=== PATIENT | female | born 1980 | race Caucasian/White ===

== ENCOUNTER 2024-03-12 19:06 | Emergency (ER) | payer OTHER, SELFPAY ==
--- NOTE | 2024-03-12 19:08 | ED.URI ---
HPI - URI/Sore Throat General Chief Complaint: Upper Respiratory Infection Stated Complaint: Sinus Infection Time Seen by Provider: 03/12/24 19:08 Source: patient Mode of arrival: ambulatory Limitations: no limitations History of Present Illness HPI Narrative: Kirsty is a 44-year-old female patient presenting to the clinic today with complaints of possible sinus infection. She reports she has had symptoms for over 1 week. Is blowing out some green nasal drainage has sinus pressure. No known fever or chills. States she gets a sinus infection every year. MD elicited complaint: nasal congestion and sinus pain Related Data Allergies Allergy/AdvReac Type Severity Reaction Status Date / Time doxycycline Allergy Mild Rash Verified 03/12/24 19:16 Review of Systems Review of Systems: Pertinent positives per HPI. Patient denies any fever, chills, rash, headache, visual changes, dizziness, cough, shortness of breath, chest pain, palpitations, nausea, vomiting, diarrhea, constipation, abdominal pain, or any urinary issues. [facility] Past Medical History Medical History Acute sinusitis Social History Social History Smoking status: Never smoker Alcohol intake: never Substance use: never Substance use type: does not use Lack of Transportation: No Lack of Food: Never True Current Housing: I Have Housing Concerned About Future Housing: No Difficulty Paying Gas/Electric Bills: No Difficulty Paying for Meds: No Currently Unemployed: No Difficulty w/ Childcare or Family Care: No Living arrangements: with family Occupation/Education: occupation Gender identity (if verbalized by the patient): Female Comments At the time of my signature, I reviewed and agree with the nursing past medical, surgical, social, and family history. There is no relevant family history pertinent to the patient complaint. Exam Narrative: General: Well-developed, well nourished, in no apparent distress Head: Normocephalic, atraumatic Eyes: Pupils equally round and reactive to light bilaterally, EOM intact, sclera and conjunctive clear, no discharge, lids normal Ears: TMs intact and clear, ear canals clear, no drainage, grossly hearing normal. Nose: Nares patent, green nasal discharge, moderate inflammation, maxillary sinus tenderness. Mouth: Oral pharynx without lesions or masses, good dentition, MMM. Postnasal drip Neck: Supple, trachea midline, no enlargement of anterior or posterior cervical nodes, no thyroid masses or goiter palpable. Cardio: Regular rate and rhythm, s1 and s2 normal, no murmur appreciated. Resp: Clear to auscultation bilaterally, no rhonchi, rales, wheezing or rubs Course Course Emergency Course: Portions of this record may have been created with voice recognition software. Level of Care: Express Care Visit Vital Signs Vital signs: Vital signs reviewed MDM - URI/Sore Throat MDM Narrative Medical decision making narrative: At the time of visit patient is resting comfortably on the exam table. Patient appears to be nontoxic. Plan: I suspect patient has acute bacterial rhinosinusitis. Prescription for Augmentin, prednisone, fluconazole was sent to the pharmacy as patient does get yeast infections while taking antibiotics. Supportive measures were discussed with the patient and they voiced understanding discharge instructions and agrees to treatment plan. Return precautions reviewed Differential Diagnosis Differential diagnosis: Likely upper respiratory infection, otitis media, sinusitis, viral infection, bronchitis, influenza, pharyngitis and other (COVID) Discharge Plan Discharge Clinical Impression: Acute bacterial rhinosinusitis Patient Disposition: Home, Self-Care Condition: Stable Instructions: Antibiotic Form, Rhinosinusitis (ED) Additional Instructions: Take prescription medications only as prescribed-prednisone, Augmentin, and fluconazole Increase fluids and stay well hydrated Tylenol/motrin for pain/fever Flonase and OTC antihistamines as directed Vicks vapor rub to open sinuses Sinus rinses for congestion Cepacol spray, cough drops, throat lozenges, warm tea with honey/lemon, gargle salt water to soothe throat BRAT diet for diarrhea Clear liquids x 24 hours then advance as tolerated for nausea/vomiting Go to the ED if you develop a worsening in your condition- high fever not controlled by Tylenol or Motrin, dehydration, weakness, lethargy, shortness of breath, or chest pain. Follow up with your PCP in 3-5 days if symptoms persist. Patient Language: Citizen Of [place] Prescriptions: New fluconazole 150 mg tablet 150 mg PO ONCE Qty: 2 0RF Rx Instructions: as a single dose. May repeat in 72 hours if needed. prednisone 20 mg tablet 40 mg PO DAILY 5 Days Qty: 10 0RF amoxicillin-pot clavulanate 875-125 mg tablet 1 tablet PO Q12H 10 Days Qty: 20 0RF No Action albuterol sulfate 90 mcg/actuation HFA aerosol inhaler 1 - 2 inh inhalation Q4-6H PRN (Reason: shortness of breath or wheezing) Qty: 8.5 0RF Follow-up/Referrals: UNKNOWN,DOCTOR [Primary Care Provider] - Time of Disposition: 19:22 Quality NIHSS Nursing Documentation ED NIHSS nursing documentation: reviewed/agree
[2024-03-12 19:14] VITALS: BP 126/81; PULSE 72; RESP 18; TEMP 36.2; O2SAT 100
== END 2024-03-12 19:26 | disposition home or self-care (01) ==
PROVIDERS: Emergency Provider Nurse Practitioner Family
DX: J01.90 Acute sinusitis, unspecified (principal); B96.89 Other specified bacterial agents as the cause of diseases classified elsewhere
CPT/HCPCS: 99213; G0463

== ENCOUNTER 2024-04-22 16:29 | Emergency (ER) | payer OTHER, SELFPAY ==
--- NOTE | 2024-04-22 16:30 | ED.URI ---
HPI - URI/Sore Throat General Chief Complaint: Upper Respiratory Infection Stated Complaint: sinus infection Time Seen by Provider: 04/22/24 16:30 Source: patient Mode of arrival: ambulatory Limitations: no limitations History of Present Illness HPI Narrative: Kirsty is a 44-year-old female patient presenting to the clinic today with complaints of possible sinus infection. She reports no fevers, chills, body aches. States she has sinus pressure and sinus congestion that started yesterday. MD elicited complaint: sore throat and nasal congestion Related Data Home Medications ?Medication ?Instructions ?Recorded ?Confirmed ?Last Taken ?Type No Home Medications 04/07/24 04/07/24 Unknown History Allergies Allergy/AdvReac Type Severity Reaction Status Date / Time doxycycline Allergy Mild Rash Verified 04/22/24 16:41 Review of Systems Review of Systems: Pertinent positives per HPI. Patient denies any fever, chills, rash, headache, visual changes, dizziness, shortness of breath, chest pain, palpitations, nausea, vomiting, diarrhea, constipation, abdominal pain, or any urinary issues. [facility] Past Medical History Medical History Acute sinusitis Social History Social History Social History: 04/07/24 Patient declined SDOH Smoking status: Never smoker Alcohol intake: never Substance use: never Substance use type: does not use Lack of Transportation: No Lack of Food: Never True Current Housing: I Have Housing Concerned About Future Housing: No Difficulty Paying Gas/Electric Bills: No Difficulty Paying for Meds: No Currently Unemployed: No Difficulty w/ Childcare or Family Care: No Living arrangements: with family Occupation/Education: occupation Gender identity (if verbalized by the patient): Female Comments At the time of my signature, I reviewed and agree with the nursing past medical, surgical, social, and family history. There is no relevant family history pertinent to the patient complaint. Exam Narrative: General: Well-developed, well nourished, in no apparent distress Head: Normocephalic, atraumatic Eyes: Pupils equally round and reactive to light bilaterally, EOM intact, sclera and conjunctive clear, no discharge, lids normal Ears: TMs intact and clear, ear canals clear, no drainage, grossly hearing normal. Nose: Nares patent, clear nasal discharge, mild inflammation, no sinus tenderness. Mouth: Oral pharynx without lesions or masses, good dentition, MMM. Neck: Supple, trachea midline, no enlargement of anterior or posterior cervical nodes, no thyroid masses or goiter palpable. Cardio: Regular rate and rhythm, s1 and s2 normal, no murmur appreciated. Resp: Clear to auscultation bilaterally, no rhonchi, rales, wheezing or rubs Course Course Emergency Course: Portions of this record may have been created with voice recognition software. Level of Care: Express Care Visit Vital Signs Vital signs: Vital Signs Temperature 37.1 C 04/22/24 16:38 Pulse Rate 105 H 04/22/24 16:38 Respiratory Rate 18 04/22/24 16:38 Blood Pressure 131/63 04/22/24 16:38 Pulse Oximetry 100 04/22/24 16:38 Oxygen Delivery Room Air 04/22/24 16:38 Temperature 37.1 C 04/22/24 16:38 Pulse Rate 105 H 04/22/24 16:38 Respiratory Rate 18 04/22/24 16:38 Blood Pressure 131/63 04/22/24 16:38 Pulse Oximetry 100 04/22/24 16:38 Oxygen Delivery Room Air 04/22/24 16:38 Vital signs reviewed MDM - URI/Sore Throat MDM Narrative Medical decision making narrative: At the time of visit patient is resting comfortably on the exam table. Patient appears to be nontoxic. Labs: COVID testing is positive in the clinic today. Influenza testing is negative. Plan: Patient has COVID-19. Supportive measures were discussed with the patient and they voiced understanding discharge instructions and agrees to treatment plan. Return precautions reviewed Differential Diagnosis Differential diagnosis: Likely upper respiratory infection, otitis media, sinusitis, viral infection, bronchitis, influenza, pharyngitis and other (COVID) Discharge Plan Discharge Clinical Impression: COVID-19 Patient Disposition: Home, Self-Care Condition: Stable Instructions: Antibiotic Form, How to Recover from COVID-19 at Home (ED) Additional Instructions: COVID test is positive in the clinic today. Influenza testing was negative in the clinic today. May take DayQuil/NyQuil for cold/flu symptoms May continue taking Sudafed as needed for nasal congestion Increase fluids and stay well hydrated Tylenol/motrin for pain/fever Flonase and OTC antihistamines as directed Vicks vapor rub to open sinuses Sinus rinses for congestion Cepacol spray, cough drops, throat lozenges, warm tea with honey/lemon, gargle salt water to soothe throat BRAT diet for diarrhea Clear liquids x 24 hours then advance as tolerated for nausea/vomiting Go to the ED if you develop a worsening in your condition- high fever not controlled by Tylenol or Motrin, dehydration, weakness, lethargy, shortness of breath, or chest pain. Follow up with your PCP in 3-5 days if symptoms persist. Patient Language: Azeri Prescriptions: No Action No Home Medications Follow-up/Referrals: UNKNOWN,DOCTOR [Non-Staff] - Stand Alone Forms: Work/School Release IP Time of Disposition: 16:45 Quality NIHSS Nursing Documentation ED NIHSS nursing documentation: reviewed/agree
--- OUTSIDE RECORDS SUMMARY | 2024-04-22 16:31 | XMS_ITS | Clinical Summary ---
Author Organization [facility] Address [address] [place] [address] Care Team Providers Care Vulcan Crewmember Name Role Phone Olga Lidia Hernandez Primary Care Provider [phone] Allergies No known active allergies Medications fexofenadine (DARRIN) 180 mg tablet Take 1 tablet (180 mg total) by mouth daily Active Active Problems No known active problems Surgical History Surgery Date Site/Laterality Comments SECTION x 2 WISDOM TOOTH EXTRACTION Medical History Medical History Date Comments Ear problems Family History Medical History Relation Name Comments No Known Problems Father No Known Problems Mother Relation Name Status Comments Father Mother Social History Tobacco Use Types Packs/Day Years Used Date Smoking Tobacco: Never Smokeless Tobacco: Never Tobacco Cessation:Counseling Given: Not Answered Personal Safety Answer Date Recorded Getting School Help Needed Not on file 05/23 Comments Unknown Sex and Gender Information Value Date Recorded Sex Assigned at Not on file 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 Gender Identity Not on file Sexual Orientation Not on file Obstetrics History Last Filed Vital Signs Vital Sign Reading Time Taken Comments Blood Pressure - - Pulse - - Temperature 36.2 C (97.1 F) 08/20/2023 8:58 AM CDT Respiratory Rate - - Oxygen Saturation - - Inhaled Oxygen Concentration - - Weight 87.5 kg (193 lb) 08/20/2023 8:58 AM CDT Height 154.9 cm (5' 1 ) 08/20/2023 8:58 AM CDT Body Mass Index 36.47 08/20/2023 8:58 AM CDT Plan of Treatment Health Maintenance Due Date Last Done Comments Breast Cancer Screening-Mammogram 1979 Cervical Cancer Screening 1979 Colon Cancer Screening-Colonoscopy 1979 Depression Screening 1979 Hepatitis C Screening 1979 DTaP/Tdap/Td Vaccine (1 - Tdap) 1990 Hepatitis B Screening 1997 Regular Well Visit/Exam 18-64 1997 Covid-19 Vaccine (3 - 2023-2 5 season) 2023 12/25/2020, 11/29/2020 Influenza Vaccine (#1) 2023 HPV Vaccines Aged Out No longer eligi ble based on patient's age to complete this topic Pneumococcal vaccine <65 Aged Out No longer eligible based on patient's age to complete this topic Insurance [facility] HMO/PPO Address: [facility] [address] [place] [address] [facility] HMO/PP[facility] Address: [address] [address] [place] [address] Care Teams Vulcan Crewmember Relationship Specialty Start Date End Date Olga Lidia Hernandez PA [address] [place] [id number] PCP - General Family Practice 08/05/23
--- OUTSIDE RECORDS SUMMARY | 2024-04-22 16:31 | XMS_ITS | Referral Summary ---
Author Organization [facility] Address [address] [place] [address] Care Team Providers Care Clothing Cutter Name Role Phone Olga Lidia Hernandez Primary Care Provider [phone] Allergies No known active allergies Medications fexofenadine (DARRIN) 180 mg tablet Take 1 tablet (180 mg total) by mouth daily Active Active Problems No known active problems Social History Tobacco Use Types Packs/Day Years Used Date Smoking Tobacco: Never Smokeless Tobacco: Never Tobacco Cessation:Counseling Given: Not Answered Personal Safety Answer Date Recorded Getting School Help Needed Not on file 05/23 Comments Unknown Sex and Gender Information Value Date Recorded Sex Assigned at Not on file 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
--- OUTSIDE RECORDS SUMMARY | 2024-04-22 16:31 | XMS_ITS | Clinical Summary ---
Author Organization [facility] Address [address] [place] [address] Care Team Providers Care Hoof Trimmer Name Role Phone Unavailable Primary Care Provider Unavailabl e Social History Tobacco Use Types Packs/Day Years Used Date Smoking Tobacco: Never Assessed Comments Unknown Sex and Gender Information Value Date Recorded Sex Assigned at Not on file Legal Sex Female 4:58 PM CDT Gender Identity Not on file Sexual Orientation Not on file Last Filed Vital Signs Vital Sign Reading Time Taken Comments Blood Pressure 112/78 12/23/2016 2:36 PM CDT Pulse 79 12/23/2016 2:36 PM CDT Temperature - - Respiratory Rate - - Oxygen Saturation - - Inhaled Oxygen Concentration - - Weight 80.7 kg (178 lb) 12/23/2016 2:36 PM CDT Height 165.1 cm (5' 5 ) 12/23/2016 2:36 PM CDT Body Mass Index 29.62 12/23/2016 2:36 PM CDT Plan of Treatment Health Maintenance Due Date Last Done Comments Cervical Cancer Screening Pa p Smear (Age 30 to 64) Every 3 Years 1979 Colorectal Cancer Screening Colonoscopy (10 Years) 1979 Annual Physical 1982 Hepatitis C 1997 DTaP, Tdap and Td Vaccines ( 1 - Tdap) 1998 Hepatitis B Vaccines (1 of 3 - 19+ 3-dose series) 1998 Cervical Cancer Screening Pa p with HPV Testing (Age 30 to 64) Every 5 Years 2009 Cervical Cancer Screening with HPV 2009 Mammogram Screening 2019 COVID-19 Vaccine ( - 2023-2 5 season) 2023 Influenza Adult (#1) 2023 HPV Vaccines Aged Out No longer eligi ble based on patient's age to complete this topic Meningococcal B Vaccine Aged Out No l onger eligible based on patient's age to complete this topic Meningococcal Vaccine Aged Out No arianna patricio eligible based on patient's age to complete this topic Pneumococcal Vaccine: Pediat rics (0 to 5 Years) and At-Risk Patients (6 to 64 Years) Aged Out No longer eligible b ased on patient's age to complete this topic RSV Immunizations Under 20 Months Aged Out No longer eligible based on patient's age to complete this topic
[2024-04-22 16:38] VITALS: BP 131/63; PULSE 105; RESP 18; TEMP 37.1; O2SAT 100
[2024-04-22 17:03] LABS: EDCOVIDSCREEN Positive (Negative)
[2024-04-22 17:03] LABS: EDINFLUASCREEN Negative (Negative); EDINFLUBSCREEN Negative (Negative)
== END 2024-04-22 17:00 | disposition home or self-care (01) ==
PROVIDERS: Emergency Provider Nurse Practitioner Family
DX: U07.1 COVID-19 (principal)
CPT/HCPCS: 87426; 87804; 99212; G0463

== ENCOUNTER 2024-08-06 17:45 | Emergency (ER) | payer OTHER, SELFPAY ==
--- NOTE | ~2024-08-06 | CT_ITS ---
CT brain wo con Ordering provider: Shaina Hunt PA-C History: 44 years Female with . [place], hit in head by baseball . Comparison: None. Technique: CT of the head without contrast. Radiation reduction technique utilized. The dose-length p roduct was 605.33 mGy-cm. FINDINGS: BRAIN PARENCHYMA AND CSF SPACES: No midline shift, mass effect or hemorrhage. The brain parenchyma a nd CSF spaces are otherwise normal. VISUALIZED PARANASAL SINUSES: Well aerated. MASTOIDS: Well aerated. BONES: The bones appear intact. SOFT TISSUES: Visualized nasopharynx is normal. Small soft tissue density seen in the frontal scalp most likely small hematoma. Otherwise, Superficial soft tissues are normal. IMPRESSION: No acute intracranial findings. Reviewed, dictated and finalized at location A.
[2024-08-06 17:46] VITALS: BP 145/85; PULSE 84; RESP 20; TEMP 36.7; O2SAT 100
--- OUTSIDE RECORDS SUMMARY | 2024-08-06 17:47 | XMS_ITS | Referral Summary ---
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 Gender Identity Not on file Sexual Orientation Not on file Last Filed Vital Signs Vital Sign Reading Time Taken Comments Blood Pressure - - Pulse - - Temperature 36.2 C (97.1 F) 08/20/2023 8:58 AM CDT Respiratory Rate - - Oxygen Saturation - - Inhaled Oxygen Concentration - - Weight 87.5 kg (193 lb) 08/20/2023 8:58 AM CDT Height 154.9 cm (5' 1) 08/20/2023 8:58 AM CDT Body Mass Index 36.47 08/20/2023 8:58 AM CDT Plan of Treatment Not on file Insurance [facility] CHOICE PLUS [place] [id number] CHOICE PLUS Care Teams Ultrasound Tester Relationship Specialty Start Date End Date Olga Lidia Hernandez PA [address] [place] [address] [phone] PCP - General Family Practice 08/05/23
--- OUTSIDE RECORDS SUMMARY | 2024-08-06 17:47 | XMS_ITS | Clinical Summary ---
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
--- OUTSIDE RECORDS SUMMARY | 2024-08-06 18:43 | XMS_ITS | Referral Summary ---
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
--- OUTSIDE RECORDS SUMMARY | 2024-08-06 18:43 | XMS_ITS | Clinical Summary ---
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
--- NOTE | 2024-08-06 19:05 | ED_ITS ---
HPI - Head Injury General Chief complaint: Head Injury Stated complaint: HIT BY BASEBALL Time Seen by Provider: 08/06/24 17:59 Source: patient Mode of arrival: ambulatory Limitations: no limitations History of Present Illness HPI Narrative: Patient is a 44 y/o female who presents to the ED with c/o head injury. Patient reports she was playing catch with her son when the baseball hit with patient in her forehead. She sustained some swelling to the area. Complains of mild headache. Denies LOC. Denies dizziness, lightheadedness, vision changes, nausea, vomiting, neck pain, back pain, any other injuries. Related Data Home Medications ?Medication ?Instructions ?Recorded ?Confirmed ?Last Taken ?Type minoxidil 2.5 mg tablet 2.5 mg PO DAILY 05/12/24 05/12/24 Unknown History spironolactone 25 mg tablet 25 mg PO DAILY 05/12/24 05/12/24 Unknown History Allergies Allergy/AdvReac Type Severity Reaction Status Date / Time doxycycline Allergy Mild Rash Verified 05/12/24 14:46 Review of Systems Review of Systems: All systems reviewed & are unremarkable except as noted in HPI. All systems reviewed & are unremarkable except as noted in HPI and below PMFSH Past Medical History Medical History Acute sinusitis Social History Social History Social History: 04/07/24 Patient declined SDOH Smoking status: Never smoker Alcohol intake: never Substance use: never Substance use type: does not use Lack of Transportation: No Lack of Food: Never True Current Housing: I Have Housing Concerned About Future Housing: No Difficulty Paying Gas/Electric Bills: No Difficulty Paying for Meds: No Currently Unemployed: No Difficulty w/ Childcare or Family Care: No Living arrangements: with family Occupation/Education: occupation Gender identity (if verbalized by the patient): Female Exam Narrative: GENERAL: Well appearing, well-nourished, non-toxic, in no acute distress. HEAD: Normocephalic. Very mild swelling to center of forehead. No wounds or lacerations. No bruising. NECK: No midline spinal tenderness. RESPIRATORY: Airway patent, respirations nonlabored. CARDIOVASCULAR: Regular rate and rhythm MUSCULOSKELETAL: Moves all extremities. No gross deformities. SKIN: Warm, dry, normal color. NEURO: A&O X3. Speech clear. Cranial nerves II-XII grossly intact. Steady gait. No ataxic movements. No focal deficits. PSYCHIATRIC: Appropriate mood and affect. Normal interaction. Course Vital Signs Vital signs: Vital Signs Temperature 98.0 F 08/06/24 17:46 Pulse Rate 84 08/06/24 17:46 Respiratory Rate 20 08/06/24 17:46 Blood Pressure 145/85 H 08/06/24 17:46 Pulse Oximetry 100 08/06/24 17:46 Oxygen Delivery Room Air 08/06/24 17:46 Temperature 98.0 F 08/06/24 17:46 Pulse Rate 84 08/06/24 17:46 Respiratory Rate 20 08/06/24 17:46 Blood Pressure 145/85 H 08/06/24 17:46 Pulse Oximetry 100 08/06/24 17:46 Oxygen Delivery Room Air 08/06/24 17:46 MDM - Head Injury MDM Narrative Medical decision making narrative: Patient presented to ED status post head injury from baseball. Neurologically intact. Vital signs stable. In no acute distress. No neck pain or tenderness. C-spine cleared by myself in the ED. CT brain was obtained and negative. Does show small scalp hematoma. Consistent with clinical picture. Patient will be discharged. Discussed return precautions. Discharged in stable condition. Medical Records Attestation: I reviewed the patient's medical records. Imaging Data Attestation: I personally reviewed and interpreted this imaging study as follows: Radiologist's impression: ITS Impressions Head CT 08/06/24 18:48 IMPRESSION: No acute intracranial findings. Discharge Plan Discharge Clinical Impression: Closed head injury Qualifiers: Encounter type: initial encounter Qualified Code(s): S09.90XA - Unspecified injury of head, initial encounter Traumatic hematoma of forehead Qualifiers: Encounter type: initial encounter Qualified Code(s): S00.83XA - Contusion of other part of head, initial encounter Patient Disposition: Home Condition: Stable Instructions: Antibiotic Form, Concussion (ED), Head Injury (ED) Additional Instructions: Your imaging did not show any traumatic findings. You have a small hematoma 2 year forehead which should resolve with time. Recommend ice to forehead. You may utilize Tylenol/ibuprofen if needed. Follow-up with your primary care doctor for further evaluation if needed. Return to the ED for worsening or severe pain, recurrent injury, dizziness, passing out, vision changes, unable to keep down food or drink, or any other symptoms of concern. Patient Language: Latvian Prescriptions: No Action minoxidil 2.5 mg tablet 2.5 mg PO DAILY spironolactone 25 mg tablet 25 mg PO DAILY cefdinir 300 mg capsule 300 mg PO Q12H Qty: 20 0RF methylprednisolone [Medrol (Diony)] 4 mg tablets,dose pack See Rx Instructions PO PER PKG DIR Qty: 21 0RF Rx Instructions: PO PER PKG DIR Follow-up/Referrals: [facility] [Primary Care Provider] - Vivek Pickard MD [Physician] - (PRIMARY CARE) Time of Disposition: 19:08
[2024-08-06 19:30] VITALS: BP 122/89; PULSE 81; RESP 16; TEMP 36.6; O2SAT 100
== END 2024-08-06 19:31 | disposition home or self-care (01) ==
PROVIDERS: Emergency Provider Physician Assistant
DX: S09.90XA Unspecified injury of head, initial encounter (principal); S00.83XA Contusion of other part of head, initial encounter; W21.03XA Struck by baseball, initial encounter
CPT/HCPCS: 70450; 99284